=== PATIENT | male | born 1975 | race Caucasian/White ===

== ENCOUNTER 2016-05-31 14:25 | Emergency (ER) | payer OTHER ==
[~2016-05-31] VITALS: Ht 175.2 cm; Wt 111.1 kg
[~2016-05-31 14:25] MED LIST: ASMANEX220 MC1 INH; CIPROFLOXACIN500 MG PO; FLAGYL500 MG PO; FLEXERIL5 MG PO; FLOMAX0.4 MG PO; HYDROCODONE BIT1 T11 PO; LEVAQUIN750 M1 PO; MEDROL DOSEPAK4 MG PO; NKHM; NO DAILY MEDS; PERCOCET 325 MG1 TA2 PO; PERCOCET 325 MG1 TA5 PO; PREDNISONE10 MG PO; URIBEL PO; VENTOLIN H0.09 MG/AC INH; VICO10300 PO; VICODIN 5/500 505 MG PO; VICODIN 500 MG-1 TAB PO; VICODIN ES 7501 TAB PO; ZOFRAN ODT4 MG SL
[2016-05-31] MEDS ORDERED: SINGULAIR10 M1 PO (14:40)
[2016-05-31] MEDS ORDERED: NAPROSYN500 MG PO (14:48)
[2016-05-31] MEDS ORDERED: 'PARAFON FORTE500 M1 PO (14:48)
== END 2016-05-31 16:00 | disposition home or self-care (01) ==
LOC: ED 14:25
DX: S39.012A Strain of muscle, fascia and tendon of lower back, initial encounter (principal); R03.0 Elevated blood-pressure reading, without diagnosis of hypertension; F17.210 Nicotine dependence, cigarettes, uncomplicated; Z88.5 Allergy status to narcotic agent; Z79.899 Other long term (current) drug therapy; X58.XXXA Exposure to other specified factors, initial encounter; Y93.89 Activity, other specified; Y92.89 Other specified places as the place of occurrence of the external cause; Y99.9 Unspecified external cause status

== ENCOUNTER 2016-11-02 13:26 | Emergency (ER) | payer SELFPAY ==
[~2016-11-02] VITALS: Ht 175.2 cm; Wt 104.3 kg
[~2016-11-02 13:26] MED LIST changes: +'PARAFON FORTE500 M1 PO; +NAPROSYN500 MG PO; +SINGULAIR10 M1 PO
[2016-11-02] MEDS ORDERED: CEPHALEXIN500 M1 PO (15:23)
== END 2016-11-02 16:02 | disposition home or self-care (01) ==
LOC: ED 13:26
DX: S01.112A Laceration without foreign body of left eyelid and periocular area, initial encounter (principal); S80.212A Abrasion, left knee, initial encounter; S80.211A Abrasion, right knee, initial encounter; F17.210 Nicotine dependence, cigarettes, uncomplicated; Z88.6 Allergy status to analgesic agent; Z79.899 Other long term (current) drug therapy; Y04.0XXA Assault by unarmed brawl or fight, initial encounter; Y93.89 Activity, other specified; Y92.89 Other specified places as the place of occurrence of the external cause; Y99.8 Other external cause status

== ENCOUNTER 2016-11-09 13:39 | Emergency (ER) | payer SELFPAY ==
[~2016-11-09] VITALS: Ht 175.2 cm; Wt 104.3 kg
[~2016-11-09 13:39] MED LIST changes: +CEPHALEXIN500 M1 PO
== END 2016-11-09 14:44 | disposition home or self-care (01) ==
LOC: ED 13:39
DX: S01.81XD Laceration without foreign body of other part of head, subsequent encounter (principal); F17.210 Nicotine dependence, cigarettes, uncomplicated; Z88.5 Allergy status to narcotic agent; Z98.890 Other specified postprocedural states; Z79.899 Other long term (current) drug therapy; X58.XXXD Exposure to other specified factors, subsequent encounter

== ENCOUNTER 2019-03-03 00:13 | Emergency (ER) | payer BC ==
[~2019-03-03] VITALS: Ht 175.2 cm; Wt 106.6 kg
[2019-03-03] MEDS ORDERED: MEDROL DOSEPAK4 MG PO (02:02)
== END 2019-03-03 02:21 | disposition home or self-care (01) ==
LOC: ED 00:13
DX: M54.5 Low back pain (principal); G89.29 Other chronic pain; F17.210 Nicotine dependence, cigarettes, uncomplicated; Z88.8 Allergy status to other drugs, medicaments and biological substances; Z88.5 Allergy status to narcotic agent; Z88.6 Allergy status to analgesic agent; Z79.899 Other long term (current) drug therapy

== ENCOUNTER 2019-03-10 07:41 | Inpatient (IN) | payer BC ==
[~2019-03-10] VITALS: Ht 175.2 cm; Wt 109.1 kg
[2019-03-10 07:42] VITALS: BP 116/81
[2019-03-10 09:23] LABS: BASO # 0.1 10*3/uL (0.0-0.1); BASO % 0.7 % (0.0-1.0); EOS # 0.7 10*3/uL (0.0-0.4); EOS % 4.6 % (1.0-4.0); HEMATOCRIT 42.6 % (42.0-52.0); LYMPH % 12.8 % (27.0-41.0); MEAN CELL VOLUME 97.7 fl (80.0-94.0); MEAN CORPUSCULAR HGB 34.4 pg (27.0-31.0); MEAN CORPUSCULAR HGB CONC 35.2 g/dl (33.0-37.0); MEAN PLATELET VOLUME 9.9 fl (9.6-12.3); MONO # 1.3 10*3/uL (0.1-1.0); MONO % 7.8 % (3.0-9.0); NEUT # 11.7 10*3/uL (2.3-7.9); NEUT % 73.5 % (47.0-73.0); PLATELET COUNT AUTOMATED 410 10*3/uL (130-400); RED BLOOD COUNT 4.36 10*6/uL (4.50-5.90); WHITE BLOOD COUNT 15.9 10*3/uL (4.8-10.8)
[2019-03-10 09:34] LABS: ALBUMIN 3.4 gm/dl (3.1-4.5); ALKALINE PHOSPHATASE 76 U/L (45-117); BUN 18 mg/dl (7-24); CHLORIDE 107 mmol/L (98-107); CREATININE 1.01 mg/dL (0.70-1.30); POTASSIUM 4.2 mmol/L (3.5-5.1); SGOT/AST 15 IU/L (3-35); SGPT/ALT 37 U/L (12-78); SODIUM 139 mmol/L (136-145); TOTAL PROTEIN 7.1 gm/dL (6.4-8.2)
[2019-03-10 09:54] LABS: TROPONIN I < 0.015 ng/ml (<0.045)
[2019-03-10 12:18] VITALS: BP 127/81
--- NOTE | 2019-03-10 14:36 | NUR ---
DR. Etienne notified of consult. Pt given sputum cup and instructed on use.
--- NOTE | 2019-03-10 15:32 | NUR ---
Urine for strep pneumonia obtained and sent to lab.
[2019-03-10 16:00] VITALS: BP 133/75
--- NOTE | 2019-03-10 16:35 | NUR ---
Dr. Etienne in and spoke with pt.
[2019-03-10 20:00] VITALS: BP 132/69
[2019-03-11] VITALS: BP 128/75
--- NOTE | 2019-03-11 02:58 | NUR ---
24 HOUR CHART CHECK COMPLETED
[2019-03-11 08:00] VITALS: BP 120/82
[2019-03-11 09:31] LABS: HEMATOCRIT 43.3 % (42.0-52.0); HEMOGLOBIN 14.2 g/dl (14.0-18.0); MEAN CELL VOLUME 95.6 fl (80.0-94.0); MEAN CORPUSCULAR HGB 31.3 pg (27.0-31.0); MEAN CORPUSCULAR HGB CONC 32.8 g/dl (33.0-37.0); MEAN PLATELET VOLUME 9.5 fl (9.6-12.3); PLATELET COUNT AUTOMATED 362 10*3/uL (130-400); RED BLOOD COUNT 4.53 10*6/uL (4.50-5.90); RED CELL DISTRI WIDTH 12.9 % (0-14.5); WHITE BLOOD COUNT 19.4 10*3/uL (4.8-10.8)
[2019-03-11 09:55] LABS: PLATELET SUFFICIENCY NORMAL (NORMAL); TOTAL CELLS COUNTED 100 #CELLS
[2019-03-11 10:07] LABS: ALBUMIN 3.1 gm/dl (3.1-4.5); ALKALINE PHOSPHATASE 73 U/L (45-117); BUN 13 mg/dl (7-24); CHLORIDE 108 mmol/L (98-107); CREATININE 0.85 mg/dL (0.70-1.30); PHOSPHOROUS 2.7 mg/dL (2.5-4.9); SGOT/AST 10 IU/L (3-35); SGPT/ALT 34 U/L (12-78); SODIUM 139 mmol/L (136-145)
--- NOTE | 2019-03-11 10:07 | NUR ---
Machine Tool Dresser in to talk to patient. Patient states lives at HOME with GIRL FRIEND. There are NO steps in the home. Physician: NONE EXCEPT DR OLSON [facility] Patient's level of ADLs: INDEPENDENT Patient has working utilities: YES DME: NO Follow-up physician's appointment after d/c: DOES NOT HAVE PCP FOLLOWS WITH DR OLSON Does patient want to access PORTAL?: NO Discharge plan PT STATES HE LIVES AT HOME WITH HIS GIRLFRIEND AND IS INDPENDENT IN HIS CARE. DENIES HE WILL HAVE ANY NEEDS. STATES HE WILL RETURN HOME WHEN MEDICALLY STABLE. WILL CONTINUE TO FOLLOW.. PAULA HARRINGTON
--- NOTE | 2019-03-11 11:13 | NUR ---
FIELD SERVICE ENGINEER DISCONTINUED.
[2019-03-11 12:00] VITALS: BP 130/68
[2019-03-11 16:00] VITALS: BP 128/82
--- NOTE | 2019-03-11 19:05 | NUR ---
ARRIVED ON SHIFT, INTRODUCED TO PATIENT, PATIENTS FRIEND AT BEDSIDE, NO NEEDS VOICED. WHITE BOARD UPDATED, BED IN LOW POSITION, WHEELS LOCKED.
[2019-03-11 20:00] VITALS: BP 123/60
--- NOTE | 2019-03-11 22:29 | NUR ---
24 HR chart check completed.
[2019-03-12] VITALS: BP 130/87
[2019-03-12 08:00] VITALS: BP 134/90
[2019-03-12 12:00] VITALS: BP 124/78
[2019-03-12 20:00] VITALS: BP 110/76
[2019-03-13] VITALS: BP 136/89
[2019-03-13 07:50] VITALS: BP 133/79
--- NOTE | 2019-03-13 08:05 | NUR ---
PATIENT IS SITTING UP IN BED WATCHING TV. RESTING COMFORTABLY. PATRIZIA ERVIN [facility]
--- NOTE | 2019-03-13 08:30 | NUR ---
PT SITTING UP IN BED. RESP-EASY AND REGULAR. NO C/O AT THIS TIME. STUDENT NURSES WITH PT TODAY ALSO. CALL LIGHT IN REACH.
--- NOTE | 2019-03-13 09:00 | NUR ---
case management visits with patient, he states he will return home when medically stable and denies any home needs
[2019-03-13] MEDS ORDERED: ZITHROMAX250 MG PO (09:13)
[2019-03-13] MEDS ORDERED: MUCINEX ER600 MG PO (09:13)
[2019-03-13] MEDS ORDERED: PREDNISONE10 MG PO (09:13)
--- NOTE | 2019-03-13 11:15 | NUR ---
IV D/C'D. SITE ASYMPTOMATIC KAYLA LLOYD
--- NOTE | 2019-03-13 11:25 | NUR ---
Discharge instructions reviewed with patient/family. Patient receptive and verbalizes understanding. Follow-up care arranged. Written instructions given to patient/family, gave patient work release per request. Discharged patient to vehicle in ER parking lot. Student accompanied patient to door, condition stable. Keysha Grimaldo SPJUAN JOSÉCC
== END 2019-03-13 11:25 | disposition home or self-care (01) | DRG 871 ==
LOC: ED 07:41 → EDHOLD 09:54 → 4E 09:54
PROVIDERS: Family Medicine; Student in an Organized Health Care Education/Training Program; ADMIT Emergency Medicine
DX: A41.9 Sepsis, unspecified organism (principal); J18.9 Pneumonia, unspecified organism; E44.1 Mild protein-calorie malnutrition; J45.901 Unspecified asthma with (acute) exacerbation; E66.9 Obesity, unspecified; G47.30 Sleep apnea, unspecified; J20.9 Acute bronchitis, unspecified; T38.0X5A Adverse effect of glucocorticoids and synthetic analogues, initial encounter; K58.9 Irritable bowel syndrome, unspecified; D72.829 Elevated white blood cell count, unspecified; Y92.89 Other specified places as the place of occurrence of the external cause; Z88.8 Allergy status to other drugs, medicaments and biological substances; Z88.5 Allergy status to narcotic agent; Z88.6 Allergy status to analgesic agent; Z87.01 Personal history of pneumonia (recurrent); Z87.442 Personal history of urinary calculi; Z82.49 Family history of ischemic heart disease and other diseases of the circulatory system; Z82.61 Family history of arthritis; Z87.891 Personal history of nicotine dependence; Z80.0 Family history of malignant neoplasm of digestive organs; Z82.0 Family history of epilepsy and other diseases of the nervous system; Z68.35 Body mass index [BMI] 35.0-35.9, adult

== ENCOUNTER → 2021-02-27 | Day surgery (SDC) | payer BC ==
[~2021-02-27] VITALS: Ht 175.2 cm; Wt 106.1 kg
[~2021-02-27] MED LIST changes: +MUCINEX ER600 MG PO; +ZITHROMAX250 MG PO
== END | disposition home or self-care (01) ==
LOC: SDC 02-24 09:30
PROVIDERS: ATTEND Surgery
DX: Z12.11 Encounter for screening for malignant neoplasm of colon (principal); Z20.822 Contact with and (suspected) exposure to COVID-19; Z53.8 Procedure and treatment not carried out for other reasons

== ENCOUNTER → 2021-04-10 | Day surgery (SDC) | payer BC ==
[~2021-04-10] VITALS: Ht 175.2 cm; Wt 108.9 kg
[2021-04-10 06:49] VITALS: BP 120/82
[2021-04-10 07:41] VITALS: BP 117/67
[2021-04-10 07:56] VITALS: BP 106/69
[2021-04-10 08:11] VITALS: BP 125/77
== END | disposition home or self-care (01) ==
LOC: SDC 04-07 08:00 → EDSTATUS 04-07 08:00 → SDC 01:39
PROVIDERS: ATTEND Surgery
DX: Z12.11 Encounter for screening for malignant neoplasm of colon (principal); Z87.891 Personal history of nicotine dependence; Z98.890 Other specified postprocedural states; Z88.5 Allergy status to narcotic agent; Z88.8 Allergy status to other drugs, medicaments and biological substances; Z20.822 Contact with and (suspected) exposure to COVID-19

== ENCOUNTER 2021-11-30 14:02 | Emergency (ER) | payer BC ==
[~2021-11-30] VITALS: Ht 182.8 cm; Wt 104.3 kg
[2021-11-30] MEDS ORDERED: CYCLOBENZAPRINE10 MG PO (14:44)
[2021-11-30] MEDS ORDERED: NAPROSYN500 MG PO (14:44)
== END 2021-11-30 14:56 | disposition home or self-care (01) ==
LOC: ED 14:02
DX: M54.50 Low back pain, unspecified (principal); Z88.8 Allergy status to other drugs, medicaments and biological substances; Z98.890 Other specified postprocedural states; Z87.891 Personal history of nicotine dependence

== ENCOUNTER 2023-05-04 17:42 | Emergency (ER) | payer BC ==
[~2023-05-04 17:42] MED LIST changes: +CYCLOBENZAPRINE10 MG PO
[2023-05-04] MEDS ORDERED: Doxycycline Hyclate 100 MG CAP PO ONE ×2 (18:55)
== END 2023-05-04 19:45 | disposition home or self-care (01) ==
LOC: ED 17:42
DX: S80.861A Insect bite (nonvenomous), right lower leg, initial encounter (principal); Z88.5 Allergy status to narcotic agent; Z88.8 Allergy status to other drugs, medicaments and biological substances; Z98.890 Other specified postprocedural states; Z87.891 Personal history of nicotine dependence; Z87.442 Personal history of urinary calculi; W57.XXXA Bitten or stung by nonvenomous insect and other nonvenomous arthropods, initial encounter; Y93.01 Activity, walking, marching and hiking; Y92.89 Other specified places as the place of occurrence of the external cause; Y99.8 Other external cause status

== ENCOUNTER 2023-07-07 11:59 | Emergency (ER) | payer BC ==
[~2023-07-07] VITALS: Wt 106.6 kg
[2023-07-07] MEDS ORDERED: VIBRAMYCIN100 MG PO (12:24)
[2023-07-07] MEDS ORDERED: Doxycycline Hyclate 100 MG CAP PO ONE (12:25)
== END 2023-07-07 12:29 | disposition home or self-care (01) ==
LOC: ED 11:59
DX: S70.362A Insect bite (nonvenomous), left thigh, initial encounter (principal); A26.0 Cutaneous erysipeloid; Z88.8 Allergy status to other drugs, medicaments and biological substances; Z88.5 Allergy status to narcotic agent; Z88.6 Allergy status to analgesic agent; Z98.890 Other specified postprocedural states; Z87.891 Personal history of nicotine dependence; W57.XXXA Bitten or stung by nonvenomous insect and other nonvenomous arthropods, initial encounter; Y93.89 Activity, other specified; Y92.89 Other specified places as the place of occurrence of the external cause; Y99.8 Other external cause status

== ENCOUNTER 2023-07-24 19:52 | Emergency (ER) | payer BC ==
[~2023-07-24] VITALS: Ht 175.2 cm; Wt 106.6 kg
[~2023-07-24 19:52] MED LIST changes: +VIBRAMYCIN100 MG PO
== END 2023-07-24 22:09 | disposition home or self-care (01) ==
LOC: ED 19:52
DX: S93.401A Sprain of unspecified ligament of right ankle, initial encounter (principal); Z88.8 Allergy status to other drugs, medicaments and biological substances; Z88.5 Allergy status to narcotic agent; Z88.6 Allergy status to analgesic agent; Z98.890 Other specified postprocedural states; Z87.891 Personal history of nicotine dependence; W01.198A Fall on same level from slipping, tripping and stumbling with subsequent striking against other object, initial encounter; Y93.89 Activity, other specified; Y92.89 Other specified places as the place of occurrence of the external cause; Y99.8 Other external cause status

== ENCOUNTER 2024-01-18 11:40 | Emergency (ER) | payer BC ==
[~2024-01-18] VITALS: Ht 175.2 cm; Wt 106.6 kg
[2024-01-18] MEDS ORDERED: Doxycycline Hyclate 100 MG CAP PO ONE (12:20)
[2024-01-18] MEDS ORDERED: Bacitracin Zinc 14 GM TUBE T ONE (12:20)
== END 2024-01-18 12:24 | disposition home or self-care (01) ==
LOC: ED 11:40
DX: S30.861A Insect bite (nonvenomous) of abdominal wall, initial encounter (principal); Z23 Encounter for immunization; Z87.442 Personal history of urinary calculi; Z88.5 Allergy status to narcotic agent; Z88.8 Allergy status to other drugs, medicaments and biological substances; Z98.890 Other specified postprocedural states; Z87.891 Personal history of nicotine dependence; W57.XXXA Bitten or stung by nonvenomous insect and other nonvenomous arthropods, initial encounter; Y93.89 Activity, other specified; Y92.89 Other specified places as the place of occurrence of the external cause; Y99.8 Other external cause status

== ENCOUNTER 2024-02-07 00:04 | Emergency (ER) | payer BC ==
[~2024-02-07] VITALS: Ht 175.2 cm; Wt 106.6 kg
[2024-02-07 00:49] LABS: BILIRUBIN Negative (Negative); BLOOD 3+ (Negative); CLARITY Clear (Clear); COLOR Yellow (Yellow); GLUCOSE Negative (Negative); KETONE Negative (Negative); LEUKO ESTERASE Negative (Negative); NITRITE Negative (Negative); PH 5.5 (4.5-8.0); SPECIFIC GRAVITY >= 1.030 (1.001-1.030)
[2024-02-07 00:58] LABS: BACTERIA 1+; RBC 41-50 rbc/hpf (0-2)
[2024-02-07] MEDS ORDERED: Ketorolac Tromethamine 60 MG/2 ML VIAL IM ONE (01:20)
[2024-02-07] MEDS ORDERED: Ondansetron Hydrochloride 4 MG TAB SL ONE (01:20)
[2024-02-07] MEDS ORDERED: HYDROCODONE-AC1 EAC1 PO (03:58)
[2024-02-07] MEDS ORDERED: Ondansetron4 MG PO (03:58)
[2024-02-07] MEDS ORDERED: FLOMAX0.4 MG PO (03:58)
== END 2024-02-07 04:05 | disposition home or self-care (01) ==
LOC: ED 00:04
PROVIDERS: Internal Medicine
DX: N20.9 Urinary calculus, unspecified (principal); Z88.5 Allergy status to narcotic agent; Z88.8 Allergy status to other drugs, medicaments and biological substances; Z98.890 Other specified postprocedural states; Z87.891 Personal history of nicotine dependence

== ENCOUNTER → 2024-03-08 | Outpatient (CLI) | payer BC ==
[~2024-03-08] MED LIST changes: +HYDROCODONE-AC1 EAC1 PO; +Ondansetron4 MG PO
== END | disposition home or self-care (01) ==
LOC: RAD 09:45
PROVIDERS: ATTEND Urology
DX: N20.0 Calculus of kidney (principal)

== ENCOUNTER → 2024-03-29 | Outpatient (CLI) | payer BC | END | disposition home or self-care (01) | LOC: US 09:30 | PROVIDERS: ATTEND Urology | DX: N20.0 Calculus of kidney (principal) ==

== ENCOUNTER → 2024-05-12 | Outpatient (CLI) | payer BC ==
[2024-05-12 14:25] LABS: BASO # 0.1 10*3/uL (0.0-0.1); BASO % 0.7 % (0.0-1.0); EOS # 0.2 10*3/uL (0.0-0.4); EOS % 1.8 % (1.0-4.0); HEMATOCRIT 44.5 % (42.0-52.0); MEAN CELL VOLUME 95.1 fl (80.0-94.0); MEAN CORPUSCULAR HGB 31.2 pg (27.0-31.0); MEAN CORPUSCULAR HGB CONC 32.8 g/dl (33.0-37.0); MEAN PLATELET VOLUME 9.3 fl (9.6-12.3); MONO # 0.7 10*3/uL (0.1-1.0); NEUT # 7.5 10*3/uL (2.3-7.9); NEUT % 76.5 % (47.0-73.0); PLATELET COUNT AUTOMATED 403 10*3/uL (130-400); RED BLOOD COUNT 4.68 10*6/uL (4.50-5.90); RED CELL DISTRI WIDTH 12.9 % (0-14.5); WHITE BLOOD COUNT 9.7 10*3/uL (4.8-10.8)
[2024-05-12 14:33] LABS: BILIRUBIN Negative (Negative); BLOOD Negative (Negative); CLARITY Clear (Clear); COLOR Yellow (Yellow); GLUCOSE Negative (Negative); KETONE Trace (Negative); LEUKO ESTERASE Negative (Negative); NITRITE Negative (Negative); SPECIFIC GRAVITY 1.025 (1.001-1.030); UROBILINOGEN 0.2 E.U./dl (0.0-1.0)
[2024-05-12 14:50] LABS: RBC 0-2 rbc/hpf (0-2); WBC 0-2 wbc/hpf (0-5)
[2024-05-12 14:57] LABS: ALKALINE PHOSPHATASE 90 U/L (46-116); BUN 14 mg/dl (9-23); CHLORIDE 107 mmol/L (98-107); POTASSIUM 4.3 mmol/L (3.4-5.1); SGPT/ALT 26 U/L (5-49); T3 UPTAKE 34.6 % (22.4-36.7); THYROXINE (T4) TOTAL 5.3 ug/dl (4.5-10.9); TOTAL PROTEIN 7.3 gm/dL (6.0-8.0)
== END | disposition home or self-care (01) ==
LOC: LAB 14:00
PROVIDERS: ATTEND Urology
DX: N20.0 Calculus of kidney (principal); R31.9 Hematuria, unspecified; E83.50 Unspecified disorder of calcium metabolism

== ENCOUNTER → 2024-05-19 | Outpatient (CLI) | payer BC | END | disposition home or self-care (01) | LOC: LAB 08:32 | PROVIDERS: ATTEND Urology | DX: N20.0 Calculus of kidney (principal); E83.50 Unspecified disorder of calcium metabolism; R31.9 Hematuria, unspecified ==

== ENCOUNTER → 2024-06-01 | Outpatient (CLI) | payer BC | END | disposition home or self-care (01) | LOC: CT 00:13 | PROVIDERS: ATTEND Urology | DX: N20.0 Calculus of kidney (principal); K80.20 Calculus of gallbladder without cholecystitis without obstruction; K76.89 Other specified diseases of liver; K57.30 Diverticulosis of large intestine without perforation or abscess without bleeding ==

== ENCOUNTER → 2024-07-05 | Outpatient (CLI) | payer BC ==
[2024-07-05 09:16] LABS: BASO # 0.1 10*3/uL (0.0-0.1); BASO % 1.1 % (0.0-1.0); EOS # 0.4 10*3/uL (0.0-0.4); EOS % 4.8 % (1.0-4.0); HEMATOCRIT 46.5 % (42.0-52.0); MEAN CELL VOLUME 96.7 fl (80.0-94.0); MEAN CORPUSCULAR HGB 31.2 pg (27.0-31.0); MEAN CORPUSCULAR HGB CONC 32.3 g/dl (33.0-37.0); MONO # 0.7 10*3/uL (0.1-1.0); MONO % 8.7 % (3.0-9.0); NEUT # 4.6 10*3/uL (2.3-7.9); NEUT % 62.5 % (47.0-73.0); PLATELET COUNT AUTOMATED 360 10*3/uL (130-400); RED BLOOD COUNT 4.81 10*6/uL (4.50-5.90); RED CELL DISTRI WIDTH 12.9 % (0-14.5); WHITE BLOOD COUNT 7.4 10*3/uL (4.8-10.8)
[2024-07-05 10:21] LABS: ALKALINE PHOSPHATASE 92 U/L (46-116); BUN 16 mg/dl (9-23); CHLORIDE 106 mmol/L (98-107); POTASSIUM 4.4 mmol/L (3.4-5.1); SGPT/ALT 22 U/L (5-49); TOTAL PROTEIN 7.1 gm/dL (6.0-8.0)
== END | disposition home or self-care (01) ==
LOC: LAB 01:17
PROVIDERS: ATTEND Internal Medicine
DX: Z12.5 Encounter for screening for malignant neoplasm of prostate (principal); N20.0 Calculus of kidney; N52.9 Male erectile dysfunction, unspecified; E66.09 Other obesity due to excess calories

== ENCOUNTER 2025-02-10 05:47 | Emergency (ER) | payer BC ==
[~2025-02-10] VITALS: Ht 175.2 cm; Wt 96.2 kg
== END 2025-02-10 07:16 | disposition home or self-care (01) ==
LOC: ED 05:47
DX: S63.297A Dislocation of distal interphalangeal joint of left little finger, initial encounter (principal); E11.9 Type 2 diabetes mellitus without complications; Z88.8 Allergy status to other drugs, medicaments and biological substances; Z88.6 Allergy status to analgesic agent; Z79.899 Other long term (current) drug therapy; Z87.891 Personal history of nicotine dependence; W18.09XA Striking against other object with subsequent fall, initial encounter; Y93.89 Activity, other specified; Y92.89 Other specified places as the place of occurrence of the external cause; Y99.8 Other external cause status

== ENCOUNTER → 2025-02-15 | Outpatient (CLI) | payer BC | END | disposition home or self-care (01) | LOC: US 02-08 14:00 | PROVIDERS: ATTEND Urology | DX: N20.0 Calculus of kidney (principal) ==

== ENCOUNTER → 2025-02-19 | Outpatient (CLI) | payer OTHER, BC | END | disposition home or self-care (01) | LOC: RAD 09:56 | PROVIDERS: ATTEND Internal Medicine | DX: M47.817 Spondylosis without myelopathy or radiculopathy, lumbosacral region (principal); R52 Pain, unspecified ==